=== PATIENT | female | born 1970 | race Caucasian/White ===

== ENCOUNTER → 2016-05-29 | Outpatient (CLI) | payer BC | LOC: GMAJ 12:01 | PROVIDERS: ATTEND Family Medicine | DX: I10 Essential (primary) hypertension (principal) ==

== ENCOUNTER → 2017-01-01 | Outpatient (CLI) | payer BC ==
--- NOTE | 2017-01-02 14:03 | MAM ---
EXAM DESCRIPTION: 3D Screening BILATERAL CLINICAL HISTORY: 46 yearsFemaleSCREENING. No complaints. Aunt with ovarian cancer. Postmenopausal. Currently taking HRT.. COMPARISON: 2-D digital screening bilateral study 09/27/2015. No prior reports available. TECHNIQUE: Bilateral CC and MLO projection full-field images, 3-D tomosynthesis digital mammographic technique. Also bilateral synthesized CC/ MLO full-field images. CAD not utilized. FINDINGS: The breast parenchymal density pattern is: Scattered areas of fibroglandular density. No skin thickening or nipple retraction bilateral solitary microcalcifications. No focal, stellate mass or density, focal asymmetry , and no suspicious microcalcifications laterally. Stable mammograms compared to prior study, taking into account differences in mammographic technique IMPRESSION: BI-RADS CATEGORY: 2 - BENIGN FINDINGS. FOLLOW UP: Routine digital bilateral screening, one year interval from December 2016 Written communication explaining the findings and follow-up, will be mailed to the patient and referring health care provider. According to the [employer], yearly mammograms are recommended starting at age 40 and continuing as long as a woman is in good health. Any breast change noted on a breast self-exam should be reported promptly to the patient's healthcare provider. Breast MRI is recommended for women with an approximately 20-25% or greater lifetime risk of breast cancer, including women with a strong family history of breast or ovarian cancer and women who have been treated for Hodgkin's disease. A negative mammographic report should not delay tissue diagnosis in patients with significant clinical history or physical findings. Extremely dense breast tissue limits the sensitivity of digital mammography. Electronically signed by: Joesph Campbell MD 01/02/2017 2:02 PM CDT Workstation: [id number]
== END ==
LOC: MAMMO 13:15
PROVIDERS: ATTEND Family Medicine
DX: Z12.31 Encounter for screening mammogram for malignant neoplasm of breast (principal)
CPT/HCPCS: 77063; G0202

== ENCOUNTER → 2017-03-15 | Outpatient (CLI) | payer BC | END | disposition home or self-care (01) | LOC: GMAJ 10:47 | PROVIDERS: ATTEND Family Medicine | DX: E03.9 Hypothyroidism, unspecified (principal) ==

== ENCOUNTER 2017-06-13 11:06 | Emergency (ER) | payer BC ==
[2017-06-13] MEDS ORDERED: methylPREDNISolone SODIUM SUC 125 MG/2 ML VIAL IV ONE (11:22)
[2017-06-13] MEDS ORDERED: diphenhydrAMINE HCL 50 MG/ML VIAL IV ONE (11:23)
[2017-06-13] MEDS ORDERED: FAMOTIDINE IV PREMIX 20 MG in PREMIX BAG 1 BAG IVPB ONE (11:24)
[2017-06-13] MEDS ORDERED: FAMOTIDINE IV PREMIX 50 ML IVPB ONE (11:27)
--- NOTE | 2017-06-13 12:49 | ED.PDOC ---
History of Present Illness - General Chief Complaint: Allergic Reaction Stated Complaint: shortness of breath Time Seen by Provider: 06/13/17 11:21 Exam Limitations: no limitations - History of Present Illness Initial Comments: ACCIDENTALLY ATE SOME STRAWBERRY JELLY AND NOW HAS STRIDOR AND SOB. SHE IS HIGHLY ALLERGIC TO STRAWBERRIES. SHE HAD AN EPIPEN AND USED IT. Timing/Duration: 1/2 hour Severity: moderate Activities at Onset: none Possible Cause: no prior episodes Improving Factors: nothing Worsening Factors: nothing Associated Symptoms: denies symptoms, cough, wheezing Respiratory Risk Factors: foods Allergies/Adverse Reactions: Allergies Cephalexin [From Keflex] Allergy (Verified 06/13/17 11:43) Penicillin G Allergy (Verified 06/13/17 11:43) Home Medications: Ambulatory Orders [facility] 12/27/13 HYDROcodone 7.5MG/APAP 325MG [[place] 7.5/325] 1 ea PO .Q4H PRN #10 tab 12/27/13 Ondansetron [Zofran Odt] 4 mg SL Q8HRS PRN #7 tab 12/27/13 Clindamycin HCl [Cleocin] 300 mg PO TID #21 cap 04/19/14 Albuterol Inhaler [Ventolin Hfa Inhaler] 2 puff INH Q6HR #1 inh 06/13/17 predniSONE 20 mg PO DAILY #5 tab 06/13/17 Review of Systems - Review of Systems Constitutional: States: malaise EENTM: States: throat swelling Respiratory: States: short of breath, stridor, wheezing Cardiology: States: no symptoms reported Gastrointestinal/Abdominal: States: no symptoms reported Genitourinary: States: no symptoms reported Musculoskeletal: States: no symptoms reported Skin: States: no symptoms reported Neurological: States: no symptoms reported Endocrine: States: no symptoms reported Hematologic/Lymphatic: States: no symptoms reported Past Medical History (General) - Patient Medical History Hx Seizures: No Hx Stroke: No Hx Dementia: No Hx Asthma: Yes Hx of COPD: No Hx Cardiac Disorders: No Hx Congestive Heart Failure: No Hx Pacemaker: No Hx Hypertension: Yes - HX not taking medication since gastric bypass Hx Thyroid Disease: Yes Hx Diabetes: No Hx Gastroesophageal Reflux: Yes Hx Renal Disease: No Hx Cancer: No Hx of HIV: No Hx Hepatitis C: No Hx MRSA: No - Vaccination History Hx Tetanus, Diphtheria Vaccination: Yes Hx Influenza Vaccination: Yes Hx Pneumococcal Vaccination: Yes - Social History Hx Tobacco Use: No Hx Alcohol Use: No - Female History Patient is a Female of Child Bearing Age (10 -59 yrs old): No Patient : No Family Medical History - Family History Mother Family History: Unknown Physical Exam - Physical Exam General Appearance: Anxious, Ill Appearing, Well Hydrated, Well Nourished, Other - STRIDOR NOTED Eyes, Ears, Nose, Throat Exam: PERRL/EOMI, normal ENT inspection, TMs normal, pharynx normal Neck: non-tender, full range of motion, supple, normal inspection Respiratory: chest non-tender, lungs clear, normal breath sounds, no respiratory distress, no accessory muscle use Cardiovascular/Chest: normal peripheral pulses, regular rate, rhythm, no edema, no gallop, no JVD, no murmur Gastrointestinal/Abdominal: normal bowel sounds, non tender, soft, no organomegaly, no pulsatile mass Rectal Exam: deferred Extremity: normal range of motion Neurologic: no motor/sensory deficits, alert, normal mood/affect, oriented x 3 Skin Exam: normal color Lymphatic: no adenopathy Progress - Results/Orders Results/Orders: RE-ASSESSED AFTER MEDS: STRIDOR IS GONE, FEELS MUCH IMPROVED. Departure - Departure Clinical Impression: Angioedema Qualifiers: Encounter type: initial encounter Qualified Code(s): T78.3XXA - Angioneurotic edema, initial encounter Time of Disposition: 12:52 Disposition: Discharge to Home or Self Care Condition: Good Departure Forms: ED Discharge - Pt. Copy, Patient Portal Self Enrollment Instructions: DI for Allergic Rhinitis, DI for Angioedema Referrals: Bright Castellon MD [Primary Care Provider] - 1-2 Weeks Prescriptions: Albuterol Inhaler [Ventolin Hfa Inhaler] 2 puff INH Q6HR #1 inh predniSONE 20 mg PO DAILY #5 tab Home Medications: Ambulatory Orders [facility] 12/27/13 HYDROcodone 7.5MG/APAP 325MG [[place] 7.5/325] 1 ea PO .Q4H PRN #10 tab 12/27/13 Ondansetron [Zofran Odt] 4 mg SL Q8HRS PRN #7 tab 12/27/13 Clindamycin HCl [Cleocin] 300 mg PO TID #21 cap 04/19/14 Albuterol Inhaler [Ventolin Hfa Inhaler] 2 puff INH Q6HR #1 inh 06/13/17 predniSONE 20 mg PO DAILY #5 tab 06/13/17
[2017-06-13 13:22] VITALS: BP 146/84; TEMP 98.8; O2SAT 99
== END 2017-06-13 13:15 | disposition home or self-care (01) ==
LOC: ER 11:06
DX: T78.3XXA Angioneurotic edema, initial encounter (principal); J45.909 Unspecified asthma, uncomplicated; K21.9 Gastro-esophageal reflux disease without esophagitis; I10 Essential (primary) hypertension; Z91.018 Allergy to other foods
CPT/HCPCS: J1200; J2930; J3490

== ENCOUNTER 2018-02-04 20:24 | Emergency (ER) | payer BC ==
[2018-02-04 20:39] VITALS: TEMP 97.5
--- NOTE | 2018-02-04 21:42 | RAD ---
EXAM DESCRIPTION: Elbow,Left 2 Views CLINICAL HISTORY: 47 years Female, fall, pain COMPARISON: None. FINDINGS: Left elbow 2 views No fracture or dislocation. Soft tissues are unremarkable. IMPRESSION: No acute abnormality. Electronically signed by: Ricardo Marquez MD 02/04/2018 9:41 PM CDT
--- NOTE | 2018-02-04 21:56 | RAD ---
EXAM DESCRIPTION: Wrist,Left 3 Views CLINICAL HISTORY: 47 years Female, fell onto L hand COMPARISON: 08/18/2012 FINDINGS: Three views of the left wrist No fracture or dislocation. Soft tissues are within normal limits. IMPRESSION: No acute osseous finding of the left wrist. Electronically signed by: Mariela Moody MD 02/04/2018 9:55 PM CDT
--- NOTE | 2018-02-04 22:06 | ED.PDOC ---
History of Present Illness - General Chief Complaint: Upper Extremity Injury Stated Complaint: Left wrist pain Time Seen by Provider: 02/04/18 20:56 Source: patient Exam Limitations: no limitations - History of Present Illness Initial Comments: the patient is a 47-year-old female presenting to the emergency room after having tripped and fallen and landed on an outstretched arm with her wrist turned under. No lacerations. She actually has good passive range of motion. She is having some spasms of pain up her forearm with certain movements. She does appear to be neurovascularly intact. I see no bruising or deformity. She is tender over the medial epicondyles. She is tender around the wrist but there is no swelling. Strength is preserved. No other injuries. Timing/Duration: momentarily Severity: moderate Improving Factors: immobilization Worsening Factors: movement Associated Symptoms: denies symptoms Allergies/Adverse Reactions: Allergies Cephalexin [From Keflex] Allergy (Verified 06/13/17 11:43) Penicillin G Allergy (Verified 06/13/17 11:43) Home Medications: Ambulatory Orders [place] Thyroid 02/04/18 Buspirone HCl [Buspirone HCl] 02/04/18 Pristiq 02/04/18 Tramadol HCl 50 mg PO Q6HR PRN #30 tab 02/04/18 Review of Systems - Review of Systems Constitutional: States: no symptoms reported EENTM: States: no symptoms reported Respiratory: States: no symptoms reported Cardiology: States: no symptoms reported Gastrointestinal/Abdominal: States: no symptoms reported Genitourinary: States: no symptoms reported Musculoskeletal: States: see HPI Skin: States: no symptoms reported Neurological: States: no symptoms reported Endocrine: States: no symptoms reported All other Systems: No Change from Baseline Past Medical History (General) - Patient Medical History Hx Seizures: No Hx Stroke: No Hx Dementia: No Hx Asthma: Yes Hx of COPD: No Hx Cardiac Disorders: No Hx Congestive Heart Failure: No Hx Pacemaker: No Hx Hypertension: Yes - HX not taking medication since gastric bypass Hx Thyroid Disease: Yes Hx Diabetes: No Hx Gastroesophageal Reflux: Yes Hx Renal Disease: No Hx Cancer: No Hx of HIV: No Hx Hepatitis C: No Hx MRSA: No Surgical History: cholecystectomy, tonsillectomy, Hysterectomy - Vaccination History Hx Tetanus, Diphtheria Vaccination: Yes Hx Influenza Vaccination: No Hx Pneumococcal Vaccination: Yes - Social History Hx Tobacco Use: No Hx Alcohol Use: No - Female History Patient is a Female of Child Bearing Age (10 -59 yrs old): No - hysterectomy Patient : No - Triage Comment ED Triage Comment: pain to left wrist after falling onto hand Family Medical History - Family History Mother Family History: Unknown Physical Exam - Physical Exam General Appearance: Alert, Comfortable, No apparent distress Eye Exam: bilateral normal Ears, Nose, Throat: hearing grossly normal Neck: full range of motion, supple Respiratory: no respiratory distress, no accessory muscle use Cardiovascular/Chest: normal peripheral pulses, no edema Peripheral Pulses: radial,right: 2+, radial,left: 2+ Rectal Exam: deferred Back Exam: normal inspection Extremity: normal range of motion, no pedal edema, normal capillary refill, other - see history of present illness 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 She does have some left elbow and wrist pain from the fall. There is no evidence of fracture on x-ray of either area. This is likely muscle strain and ligament strain. She needs to do passive range of motion and active range of motion exercises. Topical heat may prove beneficial. Oral anti -inflammatory such as Advil or Aleve may also help. She'll be written for tramadol for as needed use for the next few days as well. ER warnings were given. Departure - Departure Clinical Impression: Strain of elbow and forearm Qualifiers: Encounter type: initial encounter Laterality: left Qualified Code(s): S56.912A - Strain of unspecified muscles, fascia and tendons at forearm level, left arm, initial encounter Disposition: Discharge to Home or Self Care Condition: Fair Departure Forms: ED Discharge - Pt. Copy, Patient Portal Self Enrollment Instructions: DI for Elbow Pain, DI for Forearm Muscle Strain Diet: regular diet Activity: increase activity as tolerated Referrals: Bright Castellon MD [Primary Care Provider] - 1-2 Weeks Prescriptions: Tramadol HCl 50 mg PO Q6HR PRN #30 tab PRN Reason: Moderate Pain Home Medications: Ambulatory Orders [place] Thyroid 02/04/18 Buspirone HCl [Buspirone HCl] 02/04/18 Pristiq 02/04/18 Tramadol HCl 50 mg PO Q6HR PRN #30 tab 02/04/18 Additional Instructions: the patient's a 47-year-old female presenting after having fallen on her left arm. She does have some left elbow and wrist pain from the fall. There is no evidence of fracture on x-ray of either area. This is likely muscle strain and ligament strain. She needs to do passive range of motion and active range of motion exercises. Topical heat may prove beneficial. Oral anti -inflammatory such as Advil or Aleve may also help. She'll be written for tramadol for as needed use for the next few days as well. ER warnings were given.
[2018-02-04 22:13] VITALS: BP 86/64; O2SAT 99
== END 2018-02-04 22:15 | disposition home or self-care (01) ==
LOC: ER 20:24
DX: S56.912A Strain of unspecified muscles, fascia and tendons at forearm level, left arm, initial encounter (principal); J45.909 Unspecified asthma, uncomplicated; E07.9 Disorder of thyroid, unspecified; K21.9 Gastro-esophageal reflux disease without esophagitis; Z79.899 Other long term (current) drug therapy; W01.0XXA Fall on same level from slipping, tripping and stumbling without subsequent striking against object, initial encounter; Y92.9 Unspecified place or not applicable

== ENCOUNTER → 2018-02-13 | Outpatient (CLI) | payer BC | LOC: GMAJ 14:52 | PROVIDERS: ATTEND Family Medicine | DX: E53.8 Deficiency of other specified B group vitamins (principal); E03.9 Hypothyroidism, unspecified; E55.9 Vitamin D deficiency, unspecified ==